=== PATIENT | male | born 1975 | race Caucasian/White ===

== ENCOUNTER 2019-05-13 15:33 | Observation (INO) ==
[2019-05-13] MEDS ORDERED: *HR* LORazepam 2 MG/ML VIAL IVP PRN ×3 (15:39)
[2019-05-13] MEDS ORDERED: 0.9 % Sodium Chloride 500 ML IVC ONE (15:44)
[2019-05-13] MEDS ORDERED: Isovue-370 500 ML BOTTLE IVP ONE ×2 (15:44→16:06)
[2019-05-13 16:13] LABS: Basophils # 0.1 K/mcL (0.0-0.2); Basophils % 0.9 %; Eosinophils # 0.3 K/mcL (0.0-0.6); Eosinophils % 2.6 %; Hematocrit 46.2 % (37.5-50.1); Hemoglobin 15.7 g/dL (12.9-16.9); Immature Granulocytes % 0.4 % (0-4); Lymphocytes # 2.7 K/mcL (0.6-4.6); Lymphocytes % 28.3 %; Mean Corpuscular Volume 102.9 fL (83.0-100.0); Mean Platelet Volume 10.4 fL (9.4-12.4); Monocytes % 10.2 %; Neutrophils # 5.6 K/mcL (1.6-8.9); Platelet Count 226 K/mcL (140-400); Red Blood Count 4.49 M/mcL (4.19-5.50); Red Cell Distribution Width 12.5 % (11.5-14.5); Segmented Neutrophils % 57.6 %; White Blood Count 9.7 K/mcL (4.3-11.1)
[2019-05-13 16:17] LABS: Prothrombin Time 11.8 Seconds (9.4-12.1)
[2019-05-13 16:20] LABS: Activated Partial Thrombo Time 31.4 Seconds (26.0-36.0)
[2019-05-13 16:37] LABS: Alanine Aminotransferase 83 Units/L (7-52); Albumin 4.2 g/dL (3.5-5.7); Albumin/Globulin Ratio 1.3 (1.1-2.2); Alkaline Phosphatase 72 Units/L (34-104); Aspartate Amino Transferase 83 Units/L (13-39); BUN/Creatinine Ratio 10 (6-26); Bilirubin,Direct 0.2 mg/dL (0.0-0.2); Bilirubin,Indirect 0.4 mg/dL (0.0-1.0); Bilirubin,Total 0.6 mg/dL (0.3-1.0); Blood Urea Nitrogen 7 mg/dL (6-20); Calcium 9.3 mg/dL (8.6-10.3); Carbon Dioxide 21 mEq/L (23-29); Chloride 99 mEq/L (98-107); Globulin 3.3 g/dL (2.4-3.5); Glucose 81 mg/dL (70-105); Lipase 21 Units/L (11-82); Osmolality,Calculated 283 (280-300); Potassium 3.4 mEq/L (3.5-5.1); Sodium 138 mEq/L (136-145); Total Protein 7.5 g/dL (6.4-8.9); Troponin I < 0.03 ng/mL (< 0.04); eGFR For African Americans > 60 (> 60); eGFR For Non-African Americans > 60 (> 60)
[2019-05-13] MEDS ORDERED: 0.9 % Sodium Chloride 1,000 ML IVC ONE (16:41)
[2019-05-13 16:43] LABS: Ethanol 120 mg/dL (Less than 10)
[2019-05-13 16:57] LABS: Magnesium 1.7 mg/dL (1.6-2.6)
[2019-05-13] MEDS ORDERED: THIAMINE IVPB ONE (17:00)
[2019-05-13] MEDS ORDERED: VITAMIN K IVPB ONE (17:00)
[2019-05-13] MEDS ORDERED: [UNRECOGNIZED DRUG - OTHER] IVPB ONE (17:00)
[2019-05-13] MEDS ORDERED: MVI IVPB ONE (17:00)
[2019-05-13] MEDS ORDERED: FOLIC ACID IVPB ONE (17:00)
[2019-05-13] MEDS ORDERED: Potassium Chloride Elixir 20 MEQ/15 ML UDC PO ONE (17:08)
[2019-05-13 17:24] LABS: Bilirubin,Urine Negative (Negative); Blood,Urine Negative (Negative); Clarity,Urine Clear (Clear); Color,Urine Yellow (Yellow); Glucose,Urine (UA) Normal (Normal); Ketones,Urine Trace mg/dL (Negative); Leukocyte Esterase,Urine Negative (Negative); Nitrite,Urine Negative (Negative); PH,Urine 6.5 pH Units (5.0-8.0); Protein,Urine Negative (Neg-Trace); Specific Gravity,Urine 1.027 (1.010-1.025); Urobilinogen,Urine Normal (Normal)
[2019-05-13 17:34] LABS: Amphetamine Screen,Urine Negative ng/mL (Cutoff=1000); Barbiturate Screen,Urine Negative ng/mL (Cutoff=200); Benzodiazepines Screen,Urine Negative ng/mL (Cutoff=200); Cannabinoid Screen,Urine Negative ng/mL (Cutoff = 50); Cocaine Screen,Urine Negative ng/mL (Cutoff= 300); Opiate Screen,Urine Negative ng/mL (Cutoff=300); Phencyclidine Screen,Urine Negative ng/mL (Cutoff=25)
[2019-05-13] MEDS ORDERED: Nitroglycerin 0.4 MG TAB.SUBL SL PRN (18:11)
[2019-05-13] MEDS ORDERED: Aspirin 325 MG TABLET PO ONE (18:11)
[2019-05-13] MEDS: Ondansetron 4 MG/2 ML VIAL IVP PRN (19:30)
[2019-05-14] MEDS: Ondansetron 4 MG/2 ML VIAL IVP PRN (04:02)
[2019-05-14 04:22] LABS: Basophils # 0.1 K/mcL (0.0-0.2); Basophils % 0.6 %; Eosinophils # 0.3 K/mcL (0.0-0.6); Eosinophils % 3.3 %; Hematocrit 45.1 % (37.5-50.1); Hemoglobin 14.4 g/dL (12.9-16.9); Immature Granulocytes % 0.4 % (0-4); Lymphocytes # 2.5 K/mcL (0.6-4.6); Mean Corpuscular HGB Conc 31.9 g/dL (31.6-35.5); Mean Corpuscular Hemoglobin 33.3 pg (28.0-33.3); Mean Corpuscular Volume 104.2 fL (83.0-100.0); Mean Platelet Volume 10.9 fL (9.4-12.4); Monocytes % 11.5 %; Neutrophils # 4.6 K/mcL (1.6-8.9); Platelet Count 217 K/mcL (140-400); Red Blood Count 4.33 M/mcL (4.19-5.50); Red Cell Distribution Width 12.4 % (11.5-14.5); Segmented Neutrophils % 54.2 %; White Blood Count 8.4 K/mcL (4.3-11.1)
[2019-05-14 04:33] LABS: Prothrombin Time 10.9 Seconds (9.4-12.1)
[2019-05-14 04:37] LABS: Alanine Aminotransferase 69 Units/L (7-52); Albumin 3.7 g/dL (3.5-5.7); Albumin/Globulin Ratio 1.3 (1.1-2.2); Alkaline Phosphatase 72 Units/L (34-104); Aspartate Amino Transferase 69 Units/L (13-39); BUN/Creatinine Ratio 13 (6-26); Bilirubin,Total 0.7 mg/dL (0.3-1.0); Blood Urea Nitrogen 9 mg/dL (6-20); Calcium 8.7 mg/dL (8.6-10.3); Carbon Dioxide 25 mEq/L (23-29); Chloride 105 mEq/L (98-107); Globulin 2.8 g/dL (2.4-3.5); Glucose 105 mg/dL (70-105); Magnesium 2.2 mg/dL (1.6-2.6); Osmolality,Calculated 281 (280-300); Potassium 3.9 mEq/L (3.5-5.1); Sodium 136 mEq/L (136-145); Total Protein 6.5 g/dL (6.4-8.9); eGFR For African Americans > 60 (> 60); eGFR For Non-African Americans > 60 (> 60)
[2019-05-14] MEDS ORDERED: Aspirin 81 MG TAB.CHEW PO SCH (09:00)
[2019-05-14] MEDS ORDERED: amLODIPine 5 MG TABLET PO SCH (09:00)
[2019-05-14 10:08] VITALS: BP 168/91
== END 2019-05-14 11:39 | disposition home or self-care (01) ==
LOC: EMEROOARM 15:33 → 3BNU 15:33 → SUATTDRO 18:00 → 3BNU 18:40
PROVIDERS: ADMIT Internal Medicine; ATTEND Internal Medicine

== ENCOUNTER 2019-10-23 20:51 | Observation (INO) ==
[2019-10-23] MEDS ORDERED: Isovue-370 500 ML BOTTLE IVP ONE (21:07)
[2019-10-23] MEDS ORDERED: Ondansetron 4 MG/2 ML VIAL IVP ONE (21:11)
[2019-10-23] MEDS ORDERED: Famotidine 20 MG/2 ML VIAL IVP ONE (21:11)
[2019-10-23] MEDS ORDERED: 0.9 % Sodium Chloride 1,000 ML IV ONE (21:11)
[2019-10-23 21:39] LABS: Mean Corpuscular Volume 97.6 fL (83.0-100.0)
[2019-10-23 21:40] LABS: Basophils # 0.1 K/mcL (0.0-0.2); Hematocrit 41.5 % (37.5-50.1); Hemoglobin 13.8 g/dL (12.9-16.9); Immature Platelets 8.9 % (1.1-6.1); Lymphocytes # 5.2 K/mcL (0.6-4.6); Lymphocytes % 62.4 %; Mean Corpuscular HGB Conc 33.3 g/dL (31.6-35.5); Mean Corpuscular Hemoglobin 32.5 pg (28.0-33.3); Mean Platelet Volume 11.1 fL (9.4-12.4); Monocytes # 1.5 K/mcL (0.0-1.3); Monocytes % 18.2 %; Neutrophils # 1.5 K/mcL (1.6-8.9); Red Blood Count 4.25 M/mcL (4.19-5.50); Segmented Neutrophils % 17.4 %; White Blood Count 8.4 K/mcL (4.3-11.1)
[2019-10-23 21:51] LABS: VBG HCO3 25 mEq/L (21-27); VBG PCO2 35 mmHg (41-51); VBG PH 7.46 pH Units (7.32-7.42); VBG PO2 156 mmHg (25-50)
[2019-10-23 21:59] LABS: Amorphous Sediment,Urine Few per hpf (None-Few); Bacteria,Urine Moderate per hpf (None-Few); Bilirubin,Urine Negative (Negative); Blood,Urine Trace (Negative); Clarity,Urine Turbid (Clear); Color,Urine Yellow (Yellow); Glucose,Urine (UA) Normal (Normal); Hyaline Casts,Urine Few per lpf (None Seen); Ketones,Urine 10 mg/dL (Negative); Leukocyte Esterase,Urine Negative (Negative); Mucus,Urine Moderate per lpf (None-Few); Nitrite,Urine Negative (Negative); Protein,Urine 50 mg/dL (Neg-Trace); Specific Gravity,Urine 1.026 (1.010-1.025); Squamous Epithelial Cell,Urine Few per hpf (None-Few)
[2019-10-23 22:01] LABS: Alanine Aminotransferase 119 Units/L (7-52); Albumin 3.8 g/dL (3.5-5.7); Albumin/Globulin Ratio 1.1 (1.1-2.2); Alkaline Phosphatase 122 Units/L (34-104); Aspartate Amino Transferase 168 Units/L (13-39); BUN/Creatinine Ratio 16 (6-26); Bilirubin,Direct 0.4 mg/dL (0.0-0.2); Bilirubin,Indirect 0.7 mg/dL (0.0-1.0); Bilirubin,Total 1.1 mg/dL (0.3-1.0); Blood Urea Nitrogen 11 mg/dL (6-20); Calcium 9.4 mg/dL (8.6-10.3); Carbon Dioxide 22 mEq/L (23-29); Chloride 101 mEq/L (98-107); Creatine Kinase 22 Units/L (30-223); Globulin 3.6 g/dL (2.4-3.5); Glucose 106 mg/dL (70-105); Lipase 37 Units/L (11-82); Osmolality,Calculated 282 (280-300); Potassium 3.6 mEq/L (3.5-5.1); Sodium 136 mEq/L (136-145); Total Protein 7.4 g/dL (6.4-8.9); Troponin I < 0.03 ng/mL (< 0.04); eGFR For African Americans > 60 (> 60); eGFR For Non-African Americans > 60 (> 60)
[2019-10-23 22:22] LABS: Platelet Count 98 K/mcL (140-400)
[2019-10-23 22:32] LABS: Platelet Estimate Decreased (Normal); Reactive Lymphocytes Present (Not Present); Smudge Cells Present (Not Present)
[2019-10-24] MEDS ORDERED: cefTRIAXone 1,000 MG in 0.9 % Sodium Chloride Mini Bag 100 ML IVPB ONE (00:08)
[2019-10-24] MEDS ORDERED: *HR* LORazepam 2 MG/ML VIAL IVP PRN ×3 (00:30)
[2019-10-24] MEDS: Thiamine (B-1) 100 MG, Folic Acid 1 MG, MVI, adult with vitamin K 10 ML in 0.9 % Sodi... IVPB SCH (02:44)
[2019-10-24] MEDS ORDERED: 0.9 % Sodium Chloride 1,000 ML IVC SCH (03:00)
[2019-10-24] MEDS: Pantoprazole 40 MG VIAL IVP SCH ×2 (03:38→17:34)
[2019-10-24 08:22] LABS: Hematocrit 38.5 % (37.5-50.1); Hemoglobin 12.7 g/dL (12.9-16.9); Immature Platelets 10.1 % (1.1-6.1); Mean Corpuscular Hemoglobin 32.6 pg (28.0-33.3); Mean Corpuscular Volume 98.7 fL (83.0-100.0); Mean Platelet Volume 11.7 fL (9.4-12.4); Nucleated Red Blood Cells 0.3 /100 WBC (0); Red Cell Distribution Width 13.4 % (11.5-14.5); White Blood Count 7.8 K/mcL (4.3-11.1)
[2019-10-24 08:25] LABS: Prothrombin Time 11.6 Seconds (9.4-12.1)
[2019-10-24 08:26] LABS: Platelet Count 96 K/mcL (140-400)
[2019-10-24 08:41] LABS: Alanine Aminotransferase 94 Units/L (7-52); Albumin 3.5 g/dL (3.5-5.7); Albumin/Globulin Ratio 1.1 (1.1-2.2); Alkaline Phosphatase 123 Units/L (34-104); Aspartate Amino Transferase 131 Units/L (13-39); BUN/Creatinine Ratio 13 (6-26); Blood Urea Nitrogen 11 mg/dL (6-20); Calcium 8.7 mg/dL (8.6-10.3); Carbon Dioxide 25 mEq/L (23-29); Chloride 104 mEq/L (98-107); Globulin 3.1 g/dL (2.4-3.5); Glucose 119 mg/dL (70-105); Osmolality,Calculated 285 (280-300); Potassium 3.5 mEq/L (3.5-5.1); Sodium 137 mEq/L (136-145); Total Protein 6.6 g/dL (6.4-8.9); eGFR For African Americans > 60 (> 60); eGFR For Non-African Americans > 60 (> 60)
[2019-10-24 09:00] LABS: Lymphocytes # 5.9 K/mcL (0.6-4.6); Monocytes # 1.1 K/mcL (0.0-1.3); Neutrophils # 0.8 K/mcL (1.6-8.9); Platelet Estimate Slight Decrease (Normal); Reactive Lymphocytes Present (Not Present)
[2019-10-24] MEDS ORDERED: SODIUM CHLORIDE/NAHCO3/KCL/PEG 4,000 ML SOLN.RECON PO ONE (17:00)
[2019-10-24] MEDS ORDERED: Thiamine (B-1) 100 MG, Folic Acid 1 MG, MVI, adult with vitamin K 10 ML in 0.9 % Sodi... IVPB SCH (18:00)
[2019-10-25] MEDS: Pantoprazole 40 MG VIAL IVP SCH ×2 (06:11→17:54)
[2019-10-25 06:28] LABS: Basophils % 0.6 %; Eosinophils % 0.1 %; Hemoglobin 11.9 g/dL (12.9-16.9); Lymphocytes # 4.7 K/mcL (0.6-4.6); Lymphocytes % 68.5 %; Mean Corpuscular HGB Conc 32.2 g/dL (31.6-35.5); Mean Corpuscular Hemoglobin 32.1 pg (28.0-33.3); Mean Corpuscular Volume 99.7 fL (83.0-100.0); Mean Platelet Volume 11.3 fL (9.4-12.4); Monocytes # 1.2 K/mcL (0.0-1.3); Monocytes % 17.9 %; Neutrophils # 0.8 K/mcL (1.6-8.9); Platelet Count 106 K/mcL (140-400); Red Blood Count 3.71 M/mcL (4.19-5.50); Red Cell Distribution Width 13.4 % (11.5-14.5); Segmented Neutrophils % 11.9 %; White Blood Count 6.9 K/mcL (4.3-11.1)
[2019-10-25 06:47] LABS: BUN/Creatinine Ratio 11 (6-26); Blood Urea Nitrogen 8 mg/dL (6-20); Calcium 8.6 mg/dL (8.6-10.3); Carbon Dioxide 24 mEq/L (23-29); Chloride 104 mEq/L (98-107); Glucose 112 mg/dL (70-105); Large Platelets Present (Not Present); Magnesium 1.6 mg/dL (1.6-2.6); Osmolality,Calculated 281 (280-300); Phosphorous 3.9 mg/dL (2.7-4.5); Platelet Estimate Slight Decrease (Normal); Potassium 3.4 mEq/L (3.5-5.1); Sodium 136 mEq/L (136-145); eGFR For African Americans > 60 (> 60); eGFR For Non-African Americans > 60 (> 60)
[2019-10-25] MEDS ORDERED: Lidocaine -MPF 2% 2 ML VIAL ONE (09:51)
[2019-10-25] MEDS ORDERED: *HR* Propofol 200 MG/20 ML VIAL IVP ONE (11:20)
[2019-10-25] MEDS: Thiamine (B-1) 100 MG, Folic Acid 1 MG, MVI, adult with vitamin K 10 ML in 0.9 % Sodi... IVPB SCH (17:53)
[2019-10-25] MEDS ORDERED: Acetaminophen 325 MG TABLET PO PRN (18:02)
[2019-10-26] MEDS: Pantoprazole 40 MG VIAL IVP SCH (05:27)
[2019-10-26 06:07] LABS: Hematocrit 36.4 % (37.5-50.1); Mean Corpuscular Hemoglobin 33.2 pg (28.0-33.3); Mean Corpuscular Volume 100.8 fL (83.0-100.0); Mean Platelet Volume 11.3 fL (9.4-12.4); Monocytes # 1.2 K/mcL (0.0-1.3); Platelet Count 119 K/mcL (140-400); Red Blood Count 3.61 M/mcL (4.19-5.50); Red Cell Distribution Width 13.2 % (11.5-14.5); White Blood Count 6.6 K/mcL (4.3-11.1)
[2019-10-26 06:29] LABS: Potassium 3.6 mEq/L (3.5-5.1)
[2019-10-26 06:45] LABS: Lymphocytes # 3.6 K/mcL (0.6-4.6); Neutrophils # 1.9 K/mcL (1.6-8.9); Platelet Estimate Slight Decrease (Normal); Reactive Lymphocytes Present (Not Present)
[2019-10-26] MEDS ORDERED: Ringers Solution, Lactated 1,000 ML IVC ONE (07:51)
[2019-10-26 10:09] VITALS: BP 130/86
[2019-10-26 14:13] LABS: BUN/Creatinine Ratio 8 (6-26); Blood Urea Nitrogen 12 mg/dL (6-20); Calcium 9.5 mg/dL (8.6-10.3); Carbon Dioxide 21 mEq/L (23-29); Chloride 108 mEq/L (98-107); Glucose 118 mg/dL (70-105); Osmolality,Calculated 287 (280-300); Potassium 3.8 mEq/L (3.5-5.1); Sodium 138 mEq/L (136-145); eGFR For African Americans > 60 (> 60); eGFR For Non-African Americans 51 (> 60)
== END 2019-10-26 15:09 | disposition home or self-care (01) ==
LOC: 3ANU 20:51 → EMEROOARM 20:51 → 3ANU 10-24 01:10
PROVIDERS: ADMIT Student in an Organized Health Care Education/Training Program; ATTEND Student in an Organized Health Care Education/Training Program

== ENCOUNTER 2021-05-04 00:46 | Inpatient (IN) ==
[2021-05-04 02:25] LABS: Basophils # 0.1 K/mcL (0.0-0.2); Basophils % 0.6 %; Eosinophils # 0.1 K/mcL (0.0-0.6); Eosinophils % 0.7 %; Hematocrit 46.8 % (37.5-50.1); Immature Granulocytes % 0.5 % (0-4); Lymphocytes # 2.2 K/mcL (0.6-4.6); Lymphocytes % 16.6 %; Mean Corpuscular HGB Conc 34.2 g/dL (31.6-35.5); Mean Corpuscular Volume 105.2 fL (83.0-100.0); Mean Platelet Volume 11.4 fL (9.4-12.4); Monocytes # 1.6 K/mcL (0.0-1.3); Monocytes % 11.9 %; Neutrophils # 9.2 K/mcL (1.6-8.9); Platelet Count 166 K/mcL (140-400); Red Blood Count 4.45 M/mcL (4.19-5.50); Red Cell Distribution Width 14.6 % (11.5-14.5); Segmented Neutrophils % 69.7 %; White Blood Count 13.2 K/mcL (4.3-11.1)
[2021-05-04 02:38] LABS: INR 1.2; Prothrombin Time 13.5 Seconds (9.4-12.1)
[2021-05-04 02:40] LABS: Activated Partial Thrombo Time 33.1 Seconds (26.0-36.0)
[2021-05-04] MEDS ORDERED: 0.9 % Sodium Chloride 1,000 ML IV ONE ×2 (03:00→04:21)
[2021-05-04 03:01] LABS: Aspartate Amino Transferase 90 Units/L (13-39)
[2021-05-04 03:02] LABS: Alanine Aminotransferase 85 Units/L (7-52); Albumin/Globulin Ratio 1.3 (1.1-2.2); Alkaline Phosphatase 127 Units/L (34-104); Amylase 27 Units/L (29-103); BUN/Creatinine Ratio 13 (6-26); Bilirubin,Total 1.2 mg/dL (0.3-1.0); Blood Urea Nitrogen 10 mg/dL (6-20); Calcium 9.2 mg/dL (8.6-10.3); Carbon Dioxide 21 mEq/L (23-29); Chloride 100 mEq/L (98-107); Globulin 3.2 g/dL (2.4-3.5); Glucose 91 mg/dL (70-105); Lipase 28 Units/L (11-82); Osmolality,Calculated 279 (280-300); Potassium 4.1 mEq/L (3.5-5.1); Sodium 135 mEq/L (136-145); Total Protein 7.2 g/dL (6.4-8.9); eGFR For African Americans > 60 (> 60); eGFR For Non-African Americans > 60 (> 60)
[2021-05-04] MEDS ORDERED: Isovue-370 500 ML BOTTLE IVP ONE (03:35)
[2021-05-04] MEDS ORDERED: *HR* FentaNYL (PF) 100 MCG/2 ML VIAL IVP ONE (03:37)
[2021-05-04] MEDS ORDERED: DilTIAZem 50 MG in 0.9 % Sodium Chloride 40 ML IVC SCH (03:45)
[2021-05-04 04:07] LABS: Ethanol 63 mg/dL (Less than 10); Troponin I 0.06 ng/mL (< 0.04)
[2021-05-04] MEDS ORDERED: 0.9 % Sodium Chloride 1,000 ML ONE (04:21)
[2021-05-04] MEDS ORDERED: cefTRIAXone 1,000 MG in Water for inj. (sterile) 10 ML IVP ONE (04:21)
[2021-05-04] MEDS ORDERED: *HR* Heparin 5,000 UNIT/ML VIAL IVP PRN (04:38)
[2021-05-04] MEDS ORDERED: *HR* Heparin 5,000 UNIT/ML VIAL IVP ONE (04:38)
[2021-05-04 04:39] LABS: Bacteria,Urine Few per hpf (None-Few); Bilirubin,Urine Negative (Negative); Blood,Urine Trace (Negative); Clarity,Urine Clear (Clear); Color,Urine Yellow (Yellow); Glucose,Urine (UA) Normal (Normal); Ketones,Urine 40 mg/dL (Negative); Leukocyte Esterase,Urine Negative (Negative); Mucus,Urine Few per lpf (None-Few); Nitrite,Urine Negative (Negative); Protein,Urine 100 mg/dL (Neg-Trace); RBC,Urine 0-3 per hpf (0-3); Specific Gravity,Urine > 1.030 (1.010-1.025); Squamous Epithelial Cell,Urine Few per hpf (None-Few); WBC,Urine 0-3 per hpf (0-3)
[2021-05-04] MEDS: Heparin 25,000UNIT/250ML 1/2NS 25,000 UNIT/250 ML IV.SOLN IVC SCH ×2 (05:13→20:12)
[2021-05-04] MEDS ORDERED: Ondansetron 4 MG/2 ML VIAL IVP PRN (06:10)
[2021-05-04] MEDS ORDERED: Naloxone 0.4 MG/ML INJ IVP PRN (06:10)
[2021-05-04] MEDS ORDERED: *HR* LORazepam 2 MG/ML VIAL IVP PRN ×3 (06:13)
[2021-05-04] MEDS ORDERED: Perflutren Lipid Microsphere 1.3 ML in 0.9 % Sodium Chloride 8.7 ML IVP PRN (06:16)
[2021-05-04 08:16] LABS: Hematocrit 44.7 % (37.5-50.1); Hemoglobin 15.1 g/dL (12.9-16.9); Mean Corpuscular HGB Conc 33.8 g/dL (31.6-35.5); Mean Corpuscular Hemoglobin 35.9 pg (28.0-33.3); Mean Corpuscular Volume 106.2 fL (83.0-100.0); Mean Platelet Volume 11.9 fL (9.4-12.4); Platelet Count 149 K/mcL (140-400); Red Blood Count 4.21 M/mcL (4.19-5.50); Red Cell Distribution Width 14.6 % (11.5-14.5); White Blood Count 14.9 K/mcL (4.3-11.1)
[2021-05-04 08:23] LABS: INR 1.4; Prothrombin Time 15.2 Seconds (9.4-12.1)
[2021-05-04 08:50] LABS: Heparin anti-factor XA UFH 0.94 IU/mL (0.30-0.70)
[2021-05-04 09:07] LABS: Activated Partial Thrombo Time 143.2 Seconds (26.0-36.0)
[2021-05-04 09:13] LABS: Hepatitis B Surface Antigen Nonreactive (Nonreactive)
[2021-05-04] MEDS: DilTIAZem 50 MG/50 ML IV.SOLN IVC SCH ×3 (09:24→20:31)
[2021-05-04] MEDS: Folic Acid 1 MG TABLET PO SCH (09:25)
[2021-05-04] MEDS: Thiamine (B-1) 100 MG TABLET PO SCH (09:25)
[2021-05-04] MEDS: *HR* HYDROmorphone 2 MG TABLET PO PRN ×3 (09:25→18:51)
[2021-05-04] MEDS: Vitamin B Complex/Vit C/Vit E 1 EACH TABLET PO SCH (09:25)
[2021-05-04 09:42] LABS: Hepatitis B Core IgM Nonreactive (Nonreactive); Hepatitis C Virus Antibody Nonreactive (Nonreactive)
[2021-05-04 09:43] LABS: Hepatitis A Antibody IgM Nonreactive (Nonreactive)
[2021-05-04] MEDS ORDERED: *HR* Metoprolol 5 MG/5 ML VIAL IVP ONE (10:30)
[2021-05-04] MEDS ORDERED: *HR* Digoxin 0.5 MG/2 ML AMPUL IVP ONE (12:55)
[2021-05-04] MEDS: Metoprolol XL (24 HR) Succ 50 MG TAB.ER.24H PO SCH (15:42)
[2021-05-04] MEDS: *HR* Heparin 5,000 UNIT/ML VIAL IVP PRN (18:52)
[2021-05-04] MEDS: *HR* Digoxin 0.5 MG/2 ML AMPUL IVP SCH (20:31)
[2021-05-05 00:38] LABS: Hematocrit 44.2 % (37.5-50.1); Hemoglobin 14.4 g/dL (12.9-16.9); Mean Corpuscular HGB Conc 32.6 g/dL (31.6-35.5); Mean Corpuscular Hemoglobin 34.7 pg (28.0-33.3); Mean Corpuscular Volume 106.5 fL (83.0-100.0); Mean Platelet Volume 11.1 fL (9.4-12.4); Platelet Count 132 K/mcL (140-400); Red Blood Count 4.15 M/mcL (4.19-5.50); Red Cell Distribution Width 14.6 % (11.5-14.5); White Blood Count 11.3 K/mcL (4.3-11.1)
[2021-05-05 00:50] LABS: Alanine Aminotransferase 60 Units/L (7-52); Albumin 3.5 g/dL (3.5-5.7); Albumin/Globulin Ratio 1.3 (1.1-2.2); Alkaline Phosphatase 104 Units/L (34-104); Aspartate Amino Transferase 53 Units/L (13-39); BUN/Creatinine Ratio 18 (6-26); Bilirubin,Total 1.3 mg/dL (0.3-1.0); Blood Urea Nitrogen 12 mg/dL (6-20); Calcium 8.7 mg/dL (8.6-10.3); Carbon Dioxide 22 mEq/L (23-29); Chloride 103 mEq/L (98-107); Globulin 2.7 g/dL (2.4-3.5); Glucose 97 mg/dL (70-105); Osmolality,Calculated 278 (280-300); Potassium 4.1 mEq/L (3.5-5.1); Sodium 134 mEq/L (136-145); Total Protein 6.2 g/dL (6.4-8.9); eGFR For African Americans > 60 (> 60); eGFR For Non-African Americans > 60 (> 60)
[2021-05-05] MEDS: DilTIAZem 50 MG/50 ML IV.SOLN IVC SCH (01:21)
[2021-05-05] MEDS: *HR* Digoxin 0.5 MG/2 ML AMPUL IVP SCH (01:21)
[2021-05-05] MEDS: *HR* HYDROmorphone 2 MG TABLET PO PRN ×3 (06:04→20:30)
[2021-05-05] MEDS: Acetaminophen 325 MG TABLET PO PRN (08:17)
[2021-05-05] MEDS: Folic Acid 1 MG TABLET PO SCH (08:17)
[2021-05-05] MEDS: Metoprolol XL (24 HR) Succ 50 MG TAB.ER.24H PO SCH (08:17)
[2021-05-05] MEDS: Vitamin B Complex/Vit C/Vit E 1 EACH TABLET PO SCH (08:17)
[2021-05-05] MEDS: Thiamine (B-1) 100 MG TABLET PO SCH (08:17)
[2021-05-05] MEDS: Heparin 25,000UNIT/250ML 1/2NS 25,000 UNIT/250 ML IV.SOLN IVC SCH (10:51)
[2021-05-05] MEDS: *HR* Digoxin 0.125 MG TABLET PO SCH (15:36)
[2021-05-05] MEDS: Melatonin 3 MG TABLET PO PRN (20:22)
[2021-05-06] MEDS: Heparin 25,000UNIT/250ML 1/2NS 25,000 UNIT/250 ML IV.SOLN IVC SCH ×2 (01:37→15:06)
[2021-05-06] MEDS: *HR* HYDROmorphone 2 MG TABLET PO PRN ×3 (04:34→20:21)
[2021-05-06 04:45] LABS: Hemoglobin 14.9 g/dL (12.9-16.9); Red Cell Distribution Width 14.6 % (11.5-14.5)
[2021-05-06 04:47] LABS: Hematocrit 45.7 % (37.5-50.1); Immature Platelets 8.9 % (1.1-6.1); Mean Corpuscular HGB Conc 32.6 g/dL (31.6-35.5); Mean Corpuscular Volume 107.3 fL (83.0-100.0); Mean Platelet Volume 11.6 fL (9.4-12.4); Red Blood Count 4.26 M/mcL (4.19-5.50); White Blood Count 10.4 K/mcL (4.3-11.1)
[2021-05-06 05:04] LABS: BUN/Creatinine Ratio 17 (6-26); Blood Urea Nitrogen 12 mg/dL (6-20); Calcium 9.2 mg/dL (8.6-10.3); Carbon Dioxide 25 mEq/L (23-29); Chloride 103 mEq/L (98-107); Glucose 106 mg/dL (70-105); Osmolality,Calculated 280 (280-300); Potassium 3.9 mEq/L (3.5-5.1); Sodium 135 mEq/L (136-145); eGFR For African Americans > 60 (> 60); eGFR For Non-African Americans > 60 (> 60)
[2021-05-06] MEDS: Folic Acid 1 MG TABLET PO SCH (07:45)
[2021-05-06] MEDS: Vitamin B Complex/Vit C/Vit E 1 EACH TABLET PO SCH (07:45)
[2021-05-06] MEDS: Thiamine (B-1) 100 MG TABLET PO SCH (07:45)
[2021-05-06] MEDS: Metoprolol XL (24 HR) Succ 50 MG TAB.ER.24H PO SCH ×2 (08:48→20:20)
[2021-05-06] MEDS: *HR* Digoxin 0.125 MG TABLET PO SCH (08:48)
[2021-05-06] MEDS ORDERED: Metoprolol XL (24 HR) Succ 25 MG TAB.ER.24H PO ONE (13:18)
[2021-05-06] MEDS ORDERED: SODIUM CHLORIDE/NAHCO3/KCL/PEG 4,000 ML SOLN.RECON PO ONE (17:00)
[2021-05-07] MEDS: Thiamine (B-1) 100 MG TABLET PO SCH (07:58)
[2021-05-07] MEDS: Metoprolol XL (24 HR) Succ 50 MG TAB.ER.24H PO SCH ×2 (07:58→20:33)
[2021-05-07] MEDS: *HR* HYDROmorphone 2 MG TABLET PO PRN ×3 (07:58→20:33)
[2021-05-07] MEDS: Vitamin B Complex/Vit C/Vit E 1 EACH TABLET PO SCH (07:58)
[2021-05-07] MEDS: *HR* Digoxin 0.125 MG TABLET PO SCH (07:59)
[2021-05-07] MEDS: Folic Acid 1 MG TABLET PO SCH (07:59)
[2021-05-07] MEDS: Acetaminophen 325 MG TABLET PO PRN (10:39)
[2021-05-07] MEDS ORDERED: *HR* Metoprolol 5 MG/5 ML VIAL IVP ONE (18:14)
[2021-05-07] MEDS: Melatonin 3 MG TABLET PO PRN (20:33)
[2021-05-07] MEDS: Heparin 25,000UNIT/250ML 1/2NS 25,000 UNIT/250 ML IV.SOLN IVC SCH (20:36)
[2021-05-08] MEDS: Heparin 25,000UNIT/250ML 1/2NS 25,000 UNIT/250 ML IV.SOLN IVC SCH ×2 (08:25→16:46)
[2021-05-08] MEDS ORDERED: *HR* Metoprolol 5 MG/5 ML VIAL IVP ONE ×3 (10:23→17:44)
[2021-05-08] MEDS ORDERED: Lidocaine -MPF 2% 5 ML VIAL ONE (11:40)
[2021-05-08] MEDS ORDERED: *HR* Midazolam HCl 2 MG/2 ML VIAL ONE (11:49)
[2021-05-08] MEDS: Thiamine (B-1) 100 MG TABLET PO SCH (13:13)
[2021-05-08] MEDS: *HR* Digoxin 0.125 MG TABLET PO SCH (13:13)
[2021-05-08] MEDS: Folic Acid 1 MG TABLET PO SCH (13:13)
[2021-05-08] MEDS: Metoprolol XL (24 HR) Succ 50 MG TAB.ER.24H PO SCH ×2 (13:17→20:23)
[2021-05-08] MEDS: Vitamin B Complex/Vit C/Vit E 1 EACH TABLET PO SCH (13:18)
[2021-05-08] MEDS: *HR* HYDROmorphone 2 MG TABLET PO PRN (16:49)
[2021-05-08] MEDS ORDERED: *HR* Propofol 500 MG/50 ML BOTTLE IVP ONE (17:44)
[2021-05-08] MEDS ORDERED: Lidocaine -MPF 2% 5 ML VIAL SQ ONE (17:44)
[2021-05-08] MEDS: Acetaminophen 325 MG TABLET PO PRN (19:43)
[2021-05-08] MEDS ORDERED: *HR* Metoprolol 5 MG/5 ML VIAL IVP PRN (21:28)
[2021-05-09] MEDS: *HR* HYDROmorphone 2 MG TABLET PO PRN ×2 (07:34→20:15)
[2021-05-09] MEDS: Heparin 25,000UNIT/250ML 1/2NS 25,000 UNIT/250 ML IV.SOLN IVC SCH ×2 (07:35→21:24)
[2021-05-09] MEDS: Folic Acid 1 MG TABLET PO SCH (08:44)
[2021-05-09] MEDS: Thiamine (B-1) 100 MG TABLET PO SCH (08:44)
[2021-05-09] MEDS: *HR* Digoxin 0.125 MG TABLET PO SCH (08:44)
[2021-05-09] MEDS: Metoprolol XL (24 HR) Succ 50 MG TAB.ER.24H PO SCH ×2 (08:44→20:16)
[2021-05-09] MEDS: Vitamin B Complex/Vit C/Vit E 1 EACH TABLET PO SCH (08:44)
[2021-05-09] MEDS ORDERED: Furosemide 20 MG/2 ML VIAL IVP ONE (09:32)
[2021-05-09] MEDS: lisinopriL 5 MG TABLET PO SCH (10:31)
[2021-05-10 02:53] LABS: Basophils # 0.1 K/mcL (0.0-0.2); Basophils % 1.3 %; Eosinophils # 0.3 K/mcL (0.0-0.6); Eosinophils % 3.1 %; Hematocrit 45.3 % (37.5-50.1); Hemoglobin 14.5 g/dL (12.9-16.9); Immature Granulocytes % 0.8 % (0-4); Lymphocytes # 3.6 K/mcL (0.6-4.6); Lymphocytes % 37.1 %; Mean Corpuscular Hemoglobin 34.7 pg (28.0-33.3); Mean Corpuscular Volume 108.4 fL (83.0-100.0); Mean Platelet Volume 11.7 fL (9.4-12.4); Monocytes # 1.2 K/mcL (0.0-1.3); Monocytes % 12.6 %; Neutrophils # 4.3 K/mcL (1.6-8.9); Platelet Count 191 K/mcL (140-400); Red Blood Count 4.18 M/mcL (4.19-5.50); Red Cell Distribution Width 14.6 % (11.5-14.5); Segmented Neutrophils % 45.1 %; White Blood Count 9.6 K/mcL (4.3-11.1)
[2021-05-10 03:07] LABS: BUN/Creatinine Ratio 16 (6-26); Blood Urea Nitrogen 15 mg/dL (6-20); Calcium 9.6 mg/dL (8.6-10.3); Carbon Dioxide 28 mEq/L (23-29); Chloride 105 mEq/L (98-107); Glucose 101 mg/dL (70-105); Osmolality,Calculated 291 (280-300); Potassium 4.3 mEq/L (3.5-5.1); Sodium 140 mEq/L (136-145); eGFR For African Americans > 60 (> 60); eGFR For Non-African Americans > 60 (> 60)
[2021-05-10] MEDS: Acetaminophen 325 MG TABLET PO PRN (05:57)
[2021-05-10] MEDS: Vitamin B Complex/Vit C/Vit E 1 EACH TABLET PO SCH (08:22)
[2021-05-10] MEDS: Folic Acid 1 MG TABLET PO SCH (08:22)
[2021-05-10] MEDS: lisinopriL 5 MG TABLET PO SCH (08:22)
[2021-05-10] MEDS: *HR* Digoxin 0.125 MG TABLET PO SCH (08:22)
[2021-05-10] MEDS: Metoprolol XL (24 HR) Succ 50 MG TAB.ER.24H PO SCH ×2 (08:22→20:19)
[2021-05-10] MEDS: Thiamine (B-1) 100 MG TABLET PO SCH (08:23)
[2021-05-10] MEDS: *HR* HYDROmorphone 2 MG TABLET PO PRN (08:28)
[2021-05-10] MEDS: Heparin 25,000UNIT/250ML 1/2NS 25,000 UNIT/250 ML IV.SOLN IVC SCH ×2 (11:18→22:34)
[2021-05-10] MEDS: Ciprofloxacin/Dex *EAR* Susp 7.5 ML BOTTLE BOTH EARS SCH ×2 (14:59→20:30)
[2021-05-11] MEDS: *HR* Heparin 5,000 UNIT/ML VIAL IVP PRN (05:27)
[2021-05-11] MEDS ORDERED: Lidocaine Viscous Oral Soln 15 ML SOLUTION MM PRN (08:15)
[2021-05-11] MEDS ORDERED: 0.9 % Sodium Chloride 500 ML IVC ONE (08:15)
[2021-05-11] MEDS ORDERED: Metoprolol XL (24 HR) Succ 50 MG TAB.ER.24H PO SCH (09:00)
[2021-05-11] MEDS: Thiamine (B-1) 100 MG TABLET PO SCH (10:07)
[2021-05-11] MEDS: Folic Acid 1 MG TABLET PO SCH (10:07)
[2021-05-11] MEDS: Vitamin B Complex/Vit C/Vit E 1 EACH TABLET PO SCH (10:07)
[2021-05-11] MEDS: Ciprofloxacin/Dex *EAR* Susp 7.5 ML BOTTLE BOTH EARS SCH (10:07)
[2021-05-11] MEDS: *HR* Digoxin 0.125 MG TABLET PO SCH (10:08)
[2021-05-11] MEDS: lisinopriL 5 MG TABLET PO SCH (10:10)
[2021-05-11] MEDS ORDERED: *HR* Heparin 5,000 UNIT/ML VIAL IVP PRN ×2 (14:31)
[2021-05-11] MEDS ORDERED: Heparin 25,000UNIT/250ML 1/2NS 25,000 UNIT/250 ML IV.SOLN IVC SCH (14:45)
[2021-05-11 15:41] LABS: FACV Specimen WHOLE BLOOD
[2021-05-11 16:07] LABS: Fac V Leiden R506Q Mut Result NEGATIVE
[2021-05-11 16:31] VITALS: BP 115/92; PULSE 92; TEMP 97.7; O2SAT 96
[2021-05-11] MEDS ORDERED: *HR* Rivaroxaban 10 MG TABLET PO SCH ×2 (17:00)
[2021-05-11 23:07] LABS: Prothrombin G20210A Specimen WHOLE BLOOD
== END 2021-05-11 17:45 | disposition home or self-care (01) | DRG 176 ==
LOC: 2NNU 00:46 → EMEROOARM 00:46 → 2NNU 06:24 → 2NENU 05-10 19:18
PROVIDERS: ADMIT Internal Medicine; ATTEND Internal Medicine

== ENCOUNTER 2021-09-01 13:20 | Inpatient (IN) ==
[2021-09-01 13:45] LABS: Basophils # 0.1 K/mcL (0.0-0.2); Basophils % 0.6 %; Eosinophils # 0.3 K/mcL (0.0-0.6); Eosinophils % 1.8 %; Hematocrit 50.1 % (37.5-50.1); Hemoglobin 16.9 g/dL (12.9-16.9); Lymphocytes # 2.6 K/mcL (0.6-4.6); Mean Corpuscular HGB Conc 33.7 g/dL (31.6-35.5); Mean Corpuscular Hemoglobin 33.4 pg (28.0-33.3); Monocytes # 1.6 K/mcL (0.0-1.3); Monocytes % 8.3 %; Platelet Count 188 K/mcL (140-400); Red Blood Count 5.06 M/mcL (4.19-5.50); Red Cell Distribution Width 14.7 % (11.5-14.5); Segmented Neutrophils % 74.3 %; White Blood Count 18.8 K/mcL (4.3-11.1)
[2021-09-01] MEDS ORDERED: DilTIAZem 50 MG/50 ML IV.SOLN IVC SCH (13:45)
[2021-09-01 14:07] LABS: BUN/Creatinine Ratio 14 (6-26); Blood Urea Nitrogen 15 mg/dL (6-20); Calcium 9.4 mg/dL (8.6-10.3); Carbon Dioxide 20 mEq/L (23-29); Chloride 104 mEq/L (98-107); Glucose 78 mg/dL (70-105); Osmolality,Calculated 284 (280-300); Potassium 5.4 mEq/L (3.5-5.1); Sodium 137 mEq/L (136-145); Troponin I < 0.03 ng/mL (< 0.04); eGFR For African Americans > 60 (> 60); eGFR For Non-African Americans > 60 (> 60)
[2021-09-01 14:37] LABS: Bacteria,Urine Few per hpf (None-Few); Bilirubin,Urine Negative (Negative); Blood,Urine Small (Negative); Clarity,Urine Clear (Clear); Color,Urine Yellow (Yellow); Glucose,Urine (UA) Normal (Normal); Hyaline Casts,Urine Moderate per lpf (None Seen); Ketones,Urine 60 mg/dL (Negative); Leukocyte Esterase,Urine Negative (Negative); Mucus,Urine Moderate per lpf (None-Few); Nitrite,Urine Negative (Negative); PH,Urine 5.5 pH Units (5.0-8.0); Protein,Urine 50 mg/dL (Neg-Trace); Specific Gravity,Urine 1.026 (1.010-1.025); Squamous Epithelial Cell,Urine Few per hpf (None-Few)
[2021-09-01] MEDS ORDERED: Ondansetron ODT 4 MG TAB.RAPDIS SL PRN ×2 (15:16→18:13)
[2021-09-01] MEDS ORDERED: Acetaminophen 325 MG TABLET PO PRN ×2 (15:16→18:13)
[2021-09-01] MEDS ORDERED: Naloxone 0.4 MG/ML INJ IVP PRN ×2 (15:16→18:13)
[2021-09-01 15:43] LABS: Magnesium 1.6 mg/dL (1.6-2.6)
[2021-09-01] MEDS ORDERED: *HR* LORazepam 2 MG/ML VIAL IVP PRN ×6 (16:01→18:13)
[2021-09-01] MEDS ORDERED: Amiodarone Premix 360 MG/200 ML BAG IVC ONE ×2 (18:00→18:13)
[2021-09-01] MEDS: Metoprolol XL (24 HR) Succ 50 MG TAB.ER.24H PO SCH (20:22)
[2021-09-01] MEDS ORDERED: Metoprolol XL (24 HR) Succ 50 MG TAB.ER.24H PO SCH (21:00)
[2021-09-01] MEDS ORDERED: Amiodarone Premix 360 MG/200 ML BAG IVC SCH (23:18)
[2021-09-02] MEDS ORDERED: Amiodarone Premix 360 MG/200 ML BAG IVC SCH
[2021-09-02] MEDS ORDERED: Melatonin 3 MG TABLET PO PRN (08:25)
[2021-09-02] MEDS: Thiamine (B-1) 100 MG TABLET PO SCH (08:36)
[2021-09-02] MEDS: Vitamin B Complex/Vit C/Vit E 1 EACH TABLET PO SCH (08:36)
[2021-09-02] MEDS: Metoprolol XL (24 HR) Succ 50 MG TAB.ER.24H PO SCH ×2 (08:36→19:16)
[2021-09-02] MEDS ORDERED: Vitamin B Complex/Vit C/Vit E 1 EACH TABLET PO SCH (09:00)
[2021-09-02] MEDS ORDERED: *HR* Digoxin 0.125 MG TABLET PO SCH ×2 (09:00→16:00)
[2021-09-02] MEDS ORDERED: *HR* Rivaroxaban 10 MG TABLET PO SCH (09:00)
[2021-09-02] MEDS ORDERED: Thiamine (B-1) 100 MG TABLET PO SCH (09:00)
[2021-09-02] MEDS ORDERED: Perflutren Lipid Microsphere 1.3 ML in 0.9 % Sodium Chloride 8.7 ML IVP PRN (09:02)
[2021-09-02 09:42] LABS: INR 1.1; Prothrombin Time 12.7 Seconds (9.4-12.1)
[2021-09-02 09:48] LABS: Chol/HDL Ratio 6.4 (0-4.9); Magnesium 1.6 mg/dL (1.6-2.6); Phosphorous 2.8 mg/dL (2.7-4.5)
[2021-09-02] MEDS ORDERED: Amiodarone Premix 360 MG/200 ML BAG IVC ONE (13:08)
[2021-09-02] MEDS: Amiodarone Premix 360 MG/200 ML BAG IVC SCH (13:20)
[2021-09-02] MEDS: *HR* Rivaroxaban 10 MG TABLET PO SCH (16:36)
[2021-09-03] MEDS: Amiodarone Premix 360 MG/200 ML BAG IVC SCH ×2 (00:02→13:00)
[2021-09-03 06:05] LABS: Basophils # 0.1 K/mcL (0.0-0.2); Basophils % 0.9 %; Eosinophils # 0.4 K/mcL (0.0-0.6); Eosinophils % 3.8 %; Hematocrit 46.5 % (37.5-50.1); Hemoglobin 15.3 g/dL (12.9-16.9); Immature Granulocytes % 1.3 % (0-4); Lymphocytes # 4.2 K/mcL (0.6-4.6); Mean Corpuscular HGB Conc 32.9 g/dL (31.6-35.5); Mean Corpuscular Hemoglobin 33.2 pg (28.0-33.3); Mean Corpuscular Volume 100.9 fL (83.0-100.0); Mean Platelet Volume 11.5 fL (9.4-12.4); Monocytes # 1.1 K/mcL (0.0-1.3); Monocytes % 10.7 %; Neutrophils # 3.9 K/mcL (1.6-8.9); Platelet Count 160 K/mcL (140-400); Red Blood Count 4.61 M/mcL (4.19-5.50); Red Cell Distribution Width 14.6 % (11.5-14.5); Segmented Neutrophils % 40.3 %; White Blood Count 9.8 K/mcL (4.3-11.1)
[2021-09-03 06:27] LABS: BUN/Creatinine Ratio 17 (6-26); Blood Urea Nitrogen 16 mg/dL (6-20); Calcium 9.2 mg/dL (8.6-10.3); Carbon Dioxide 26 mEq/L (23-29); Chloride 105 mEq/L (98-107); Glucose 108 mg/dL (70-105); Osmolality,Calculated 290 (280-300); Potassium 3.9 mEq/L (3.5-5.1); Sodium 139 mEq/L (136-145); eGFR For African Americans > 60 (> 60); eGFR For Non-African Americans > 60 (> 60)
[2021-09-03] MEDS ORDERED: lisinopriL 5 MG TABLET PO SCH (09:00)
[2021-09-03] MEDS: Vitamin B Complex/Vit C/Vit E 1 EACH TABLET PO SCH (09:01)
[2021-09-03] MEDS: Spironolactone 25 MG TABLET PO SCH (09:01)
[2021-09-03] MEDS: Thiamine (B-1) 100 MG TABLET PO SCH (09:01)
[2021-09-03] MEDS: Metoprolol XL (24 HR) Succ 50 MG TAB.ER.24H PO SCH ×2 (09:08→20:09)
[2021-09-03] MEDS ORDERED: Metoprolol 100 MG TABLET PO STA (09:08)
[2021-09-03] MEDS: *HR* Rivaroxaban 10 MG TABLET PO SCH (16:40)
[2021-09-04] MEDS: Amiodarone Premix 360 MG/200 ML BAG IVC SCH (00:13)
[2021-09-04 03:53] LABS: Basophils # 0.1 K/mcL (0.0-0.2); Basophils % 0.8 %; Eosinophils # 0.4 K/mcL (0.0-0.6); Eosinophils % 3.5 %; Hematocrit 45.4 % (37.5-50.1); Hemoglobin 14.9 g/dL (12.9-16.9); Lymphocytes % 40.3 %; Mean Corpuscular HGB Conc 32.8 g/dL (31.6-35.5); Mean Corpuscular Hemoglobin 33.4 pg (28.0-33.3); Mean Corpuscular Volume 101.8 fL (83.0-100.0); Mean Platelet Volume 12.1 fL (9.4-12.4); Monocytes # 1.2 K/mcL (0.0-1.3); Monocytes % 11.8 %; Neutrophils # 4.3 K/mcL (1.6-8.9); Platelet Count 159 K/mcL (140-400); Red Blood Count 4.46 M/mcL (4.19-5.50); Red Cell Distribution Width 14.6 % (11.5-14.5); Segmented Neutrophils % 42.6 %
[2021-09-04 04:08] LABS: Magnesium 1.6 mg/dL (1.6-2.6); Phosphorous 4.4 mg/dL (2.7-4.5)
[2021-09-04 04:11] LABS: BUN/Creatinine Ratio 15 (6-26); Blood Urea Nitrogen 13 mg/dL (6-20); Calcium 9.1 mg/dL (8.6-10.3); Carbon Dioxide 27 mEq/L (23-29); Chloride 104 mEq/L (98-107); Glucose 87 mg/dL (70-105); Osmolality,Calculated 289 (280-300); Potassium 3.9 mEq/L (3.5-5.1); Sodium 140 mEq/L (136-145); eGFR For African Americans > 60 (> 60); eGFR For Non-African Americans > 60 (> 60)
[2021-09-04] MEDS: Spironolactone 25 MG TABLET PO SCH (08:31)
[2021-09-04] MEDS: Thiamine (B-1) 100 MG TABLET PO SCH (08:31)
[2021-09-04] MEDS: Vitamin B Complex/Vit C/Vit E 1 EACH TABLET PO SCH (08:31)
[2021-09-04] MEDS ORDERED: Metoprolol XL (24 HR) Succ 50 MG TAB.ER.24H PO SCH ×2 (09:00→21:00)
[2021-09-04] MEDS ORDERED: Lidocaine Viscous Oral Soln 15 ML SOLUTION MM PRN (10:33)
[2021-09-04] MEDS ORDERED: 0.9 % Sodium Chloride 500 ML IVC ONE (10:34)
[2021-09-04] MEDS: *HR* Midazolam HCl 5 MG/5 ML VIAL IVP PRN ×4 (11:10→11:29)
[2021-09-04] MEDS: *HR* FentaNYL (PF) 100 MCG/2 ML VIAL IVP PRN ×4 (11:10→11:29)
[2021-09-04 15:22] VITALS: BP 126/91; PULSE 69; TEMP 97.6; O2SAT 97
[2021-09-05] MEDS ORDERED: *HR* Amiodarone 200 MG TABLET PO SCH (09:00)
== END 2021-09-04 18:00 | disposition home or self-care (01) | DRG 309 ==
LOC: EMEROOARM 13:20 → 2ANU 13:20 → SUATTDRO 16:34 → 2ANU 17:14 → 2NNU 18:07
PROVIDERS: ADMIT Student in an Organized Health Care Education/Training Program; ATTEND Internal Medicine